=== PATIENT | female | born 1990 | race Caucasian/White ===

== ENCOUNTER 2018-11-17 20:24 | Emergency (ER) | payer SELFPAY ==
[~2018-11-17] VITALS: Ht 162.6 cm; Wt 87.5 kg
[2018-11-17 20:31] VITALS: Ht 162.6 cm; Wt 87.5 kg
[2018-11-17 22:23] LABS: BASOPHIL % 1.2 % (0-2); PLATELET COUNT 361 x10^3mcL (130-400); RED CELL DISTRIBUTION WIDTH 14.4 % (11.5-14.5)
[2018-11-17 22:33] LABS: CALCIUM 9.3 mg/dL (8.5-10.1); CREATININE SERUM 1.2 mg/dL (0.6-1.0); POTASSIUM SERUM 3.8 mmol/L (3.5-5.1)
[2018-11-17 22:36] LABS: ALBUMIN 4.2 g/dL (3.4-5.0); BILIRUBIN TOTAL 0.3 mg/dL (0.20-1.00)
[2018-11-18 02:20] VITALS: BP 107/76
== END 2018-11-18 02:20 | disposition home or self-care (01) ==
LOC: ED 20:24
PROVIDERS: Emergency Medicine
DX: S40.022A Contusion of left upper arm, initial encounter (principal); R07.89 Other chest pain; W22.8XXA Striking against or struck by other objects, initial encounter; Y93.89 Activity, other specified; Y92.89 Other specified places as the place of occurrence of the external cause; Y99.8 Other external cause status
CPT/HCPCS: 85378; J1885; J3475; J7030; Q0092

== ENCOUNTER 2018-11-20 10:52 | Inpatient (IN) | payer MEDICAID ==
[~2018-11-20] VITALS: Ht 162.6 cm; Wt 86.2 kg
[2018-11-20 10:57] VITALS: Ht 162.6 cm; Wt 86.2 kg
--- NOTE | 2018-11-20 11:07 | NUR ---
PT BIB FAMILY S/S CP STS STARTED THIS AM STS WAS HERE X 2 DAYS AGO FOR SAME AWAITING FOR DR MEGHANA SHIELDS
--- NOTE | 2018-11-20 11:11 | NUR ---
AT BEDSIDE TO CORNELIUS
[2018-11-20 11:33] LABS: BASOPHIL % 1.1 % (0-2); PLATELET COUNT 380 x10^3mcL (130-400); RED CELL DISTRIBUTION WIDTH 14.5 % (11.5-14.5)
[2018-11-20 11:38] LABS: CALCIUM 9.4 mg/dL (8.5-10.1); CARBON DIOXIDE 29.1 mmol/L (21-32); CHLORIDE SERUM 105 mmol/L (98-107); CREATININE SERUM 1.1 mg/dL (0.6-1.0); GFR1 > 60 mL/min; GLUCOSE SERUM 85 mg/dL (74-106); POTASSIUM SERUM 4.2 mmol/L (3.5-5.1); SODIUM SERUM 143 mmol/L (136-145)
[2018-11-20 11:42] LABS: ALBUMIN 4.5 g/dL (3.4-5.0); ALKALINE PHOSPHATASE 72 U/L (46-116); ALT/SGPT 31 U/L (14-59); AST/SGOT 50 U/L (15-37); BILIRUBIN TOTAL 0.26 mg/dL (0.20-1.00); LIPASE 207 IU/L (73-393)
[2018-11-20 11:43] LABS: TOTAL PROTEIN, SERUM 8.4 g/dL (6.4-8.2)
--- NOTE | 2018-11-20 12:40 | NUR ---
PLEASE ENTER FULL NAMES OF HOOP RIVETING MACHINE OPERATOR HELPER/RN Patient data collected by (HOOP RIVETING MACHINE OPERATOR HELPER):BETTY ORR Assessment reviewed and completed by (RN):MORGAN SHARP
--- NOTE | 2018-11-20 13:02 | NUR ---
PT CALM DENIES PAIN RELAXED WATCHING TV
[2018-11-20 13:23] LABS: AMPHETAMINE QUAL UR NONE DETECTED (See below)
[2018-11-20 14:41] LABS: FREE T4 0.17 ng/dL (0.76-1.46)
[2018-11-20 14:42] LABS: FREE THYROXINE INDEX 0.1 ug/dL (1.4-4.5); T3 TOTAL 0.25 ng/mL; T4(THYROXINE) 0.5 ug/dL (4.7-13.3)
--- NOTE | 2018-11-20 14:43 | NUR ---
PT ADMIT TO ICU ROOM 3 GAVE REPORT TO GOMEZ
--- NOTE | 2018-11-20 14:45 | NUR ---
RECEIVED REPORT FROM BETTY VOSS. UPDATES PROVIDED, ALL QUESTIONS ANSWERED AND ADDRESSED. WILL ASSUME CARE
--- NOTE | 2018-11-20 15:13 | NUR ---
RECEIVED PT FROM ED ACCOMPANIED BY NURSE AND EMT VIA REVENTIVE. PT AAOX4. ABLE TO FOLLOW COMMANDS AND MAKE NEEDS KNOWN. SPEECH IS CLEAR AND APPROPRIATE FOR AGE. PERRL. GLASSES ON PT. NO FACIAL DROOP. SMILE IS SYMMETRICAL. NO UNILATERAL WEAKNESS. ON ROOM AIR. BREATHING E/U. SYMMETRICAL CHEST WALL EXPANSION. NO ADVENTITIOUS LUNG SOUNDS AUSCULTATED. DENIES SOB. NO S/S OF RESP DISTRESS. NSR ON FORM PRESSER. VS: TEMP - 97.6, HR - 63, BP - 131/88 (108), RR - 11, O2 SAT - 100%. DENIES CP AT THIS TIME. MOD PALPABLE PULSES X4. CAP REFILL <3 SEC TO BUE AND BLE. NO EDEMA. SKIN IS WARM/DRY TO TOUCH, PALE IN COLOR. PIV TO L HAND INTACT, PORT PATENT, DRESSING CDI. ABD IS SOFT, SYMMETRICAL, ROUNDED, AND NONTENDER. ACTIVE BOWEL SOUNDS. VOIDS FREELY. NO VAGINAL BLEEDING OR DISCHARGE. ABLE TO TURN AND REPOSITION SELF. AMBULATORY. FULL ROM TO ALL EXTREMITIES. JOINTS INTACT. NO CONTRACTURES. ECCHYMOSIS TO L UPPER ARM. NO OPEN WOUNDS.
[2018-11-20 15:28] VITALS: BP 131/88
--- NOTE | 2018-11-20 17:30 | NUR ---
PT RECEIVED INFLUENZA AND PNEUMONIA VACCINE ON L ARM.
--- NOTE | 2018-11-20 18:55 | NUR ---
PT AAOX4. REMAINS ON ROOM AIR. RESPS E/U. SYMMETRICAL CHEST WALL EXPANSION. NO S/S OF ACUTE DISTRESS. NSR ON YARD MOTOR OPERATOR. VSS. PIV TO L HAND INTACT, PORT PATENT, DRESSING CDI. NS INFUSING @ 100 ML/HR. WILL ENDORSE CARE TO ONCOMING RN.
--- NOTE | 2018-11-20 18:55 | NUR ---
LAB AT BEDSIDE FOR BLOOD DRAW.
--- NOTE | 2018-11-20 19:11 | NUR ---
REPORT GIVEN TO TJ VOSS. ALL QUESTIONS ANSWERED AND ADDRESSED.
--- NOTE | 2018-11-20 20:00 | NUR ---
RECEIVED PT IN BED, RESTING QUIETLY.A/O X4,ABLE TO VERBALIZE NEEDS. DENIES HEADACHE/DIZZINESS. RESP. EVEN AND UNLABORED, ON ROOM AIR. LUNG SOUNDS CLEAR BILAT. SAT. WELL. NO ACUTE DISTRESS NOTED. AFEBRILE AND VITAL SIGNS STABLE. ABD. SOFT, NON DISTENDED, BS ACTIVE, NO N/V NOTED. IVF, NS AT 100ML/HR, INTACT AND INFUSING TO LT HAND, SITE CLEAR. SKIN WARM AND DRY, ECCHYMOSIS TO LT UPPER ARM. ABLE TO MOVE ALL EXTS. AFEBRILE AND VITAL SIGNS STABLE. SR ON THE MONITOR.DENIES CP OR ANY DISCOMFORT AT THIS TIME. CALL LIGHT WITHIN REACH. WILL CONTINUE TO MONITOR.
[2018-11-20 20:05] VITALS: BP 105/72
[2018-11-20 21:00] VITALS: BP 121/81
[2018-11-20 22:00] VITALS: BP 133/91
--- NOTE | 2018-11-20 22:21 | NUR ---
COMPLAINED OF HEADACHE, 4/10, MEDICATED WITH TYLENOL PO ORDERED. WILL CONTINUE TO MONITOR.
[2018-11-20 23:06] VITALS: BP 127/78
--- NOTE | 2018-11-20 23:07 | NUR ---
PT DENIES PAIN OR ANY DISCOMFORT AT THIS TIME. WILL CONTINUE TO MONITOR.
--- NOTE | 2018-11-20 23:50 | NUR ---
NO COMPLAINTS NOTED AT THIS TIME. RESTING QUIETLY , WITH EYES CLOSED, APPEARS ASLEEP, EASILY AROUSABLE. AFEBRILE AND VITAL SIGNS STABLE. RESP. EVEN AND UNLABORED. NO ACUTE DISTRESS NOTED. SR ON THE MONITOR. IVF INTACT AND INFUSING WELL, SITE CLEAR. WILL CONTINUE TO MONITOR.
[2018-11-21] VITALS (10 sets, daily range): BP systolic 97–126; BP diastolic 53–82
[2018-11-21 00:39] LABS: microscopic required? YES; urine erythrocyte TRACE (NEGATIVE)
[2018-11-21 05:41] LABS: BASOPHIL % 0.3 % (0-2); PLATELET COUNT 365 x10^3mcL (130-400); RED CELL DISTRIBUTION WIDTH 14.4 % (11.5-14.5)
[2018-11-21 05:45] LABS: CALCIUM 8.7 mg/dL (8.5-10.1); CARBON DIOXIDE 25.6 mmol/L (21-32); CHLORIDE SERUM 105 mmol/L (98-107); CREATININE SERUM 1.1 mg/dL (0.6-1.0); GFR1 > 60 mL/min; GLUCOSE SERUM 129 mg/dL (74-106); PHOSPHOROUS 3.7 mg/dL (2.5-4.9); SODIUM SERUM 139 mmol/L (136-145)
--- NOTE | 2018-11-21 06:11 | NUR ---
SLEPT WELL. NO COMPLAINTS NOTED AT THIS TIME. SR ON THE MONITOR. DENIES CP OR ANY DISCOMFORT AT THIS TIME. AFEBRILE AND VITAL SIGNS STABLE. RESP. EVEN AND UNLABORED, ON ROOM AIR, NO ACUTE DISTRESS NOTED. ACCUCHECK READING SHOWS 118. IVF, INTACT AND INFUSING WELL, SITE CLEAR. VOIDING FREELY VIA BSC, NO BM NOTED. KEPT COMFORTABLE. CALL LIGHT WITHIN REACH. WILL CONTINUE TO MONITOR.
--- NOTE | 2018-11-21 07:30 | NUR ---
RC'D PT RESTING IN BED WITH NO APPARENT S/S OF DISTRESS. PT A/A/O/X4, SPEECH CLEAR AND APPROPRIATE. PT DENIES DIZZINESS. PT ABLE TO FOLLOW COMMANDS AND ABLE TO MAKE NEEDS KNOWN. PUPILS 3MM AND BRISK BILAT. NO FACIAL DROOP NOTED. NO EENT DRAINAGE NOTED. RESP E/U. LUNGS CTA. ON RA, DENIES SOB. SPO2 98%, NO RESP DISTRESS NOTED. NSR ON MONITOR. S1S2 AUSCULTATED. PT DENIES CP. PALP PULSES, NO EDEMA NOTED. SKIN WARM TO TOUCH AND CONSISTENT WITH ETHNICITY. NS @100. ABDOMEN SOFT AND NONTENDER. ACTIVE BS. DENIES N/V. NO BM NOTED. PT USES BSC. PT DENIES DISCOMFORT UPON URINATION. ECCYMOSIS NOTED TO CESAR VELAZQUEZ. PT DENIES PAIN AT THIS TIME. BED IN LOWEST POSITION. CALL LIGHT IN REACH. WILL CONT TO MONITOR
--- NOTE | 2018-11-21 08:18 | NUR ---
DR DAVILA AND MED TEAM PRESENT AT BEDSIDE DISCUSSING POC WITH PT. MD UPDATED ON PT CURRENT STATUS. ALL QUESTIONS AND CONCERNS ADDRESSED. NO NEW ORDERS AT THIS TIME
--- NOTE | 2018-11-21 08:35 | NUR ---
DR WEAVER PRESENT AT BEDSIDE DISCUSSING POC WITH PT. ALL QUESTIONS AND CONCERNS ADDRESSED. NO NEW ORDERS AT THIS TIME
--- NOTE | 2018-11-21 08:50 | NUR ---
CASEWORKER INTAKE PRESENT AT BEDSIDE
--- NOTE | 2018-11-21 10:08 | NUR ---
AM MEDICATIONS GIVEN. PT TOLERATED WELL. PT C/O OF MALIK 07/21, MEDICATED PER EMAR. RESP E/U. ON RA, DENIES SOB. WILL CONT TO MONITOR
--- NOTE | 2018-11-21 11:22 | NUR ---
PT RESTING IN BED, DENIES PAIN/DISTRESS. RESP E/U. SPO2 98%. WILL CONT TO MONITOR
--- NOTE | 2018-11-21 13:45 | NUR ---
DR WEIR PRESENT AT BEDSIDE DISCUSSING POC WITH PT. ALL QUESTIONS AND CONCERNS ADDRESSED. AWAITING NEW ORDERS AT THIS TIME.
--- NOTE | 2018-11-21 14:01 | NUR ---
Discount pharmacy card and list to low cost medical clinics given to patient by Marcia.
--- NOTE | 2018-11-21 15:39 | NUR ---
REPORT CALLED AND GIVEN TO CHAD VOSS. PT TO BE TRANSFERRED TO [facility]. ALL QUESTIONS AND CONCERNS ADDRESSED. PT TO TRANSFER SHORTLY
--- NOTE | 2018-11-21 16:00 | NUR ---
ASSUMED CARE AND REPORT FROM JEANMARIE VOSS FROM ICU TRANSFER, PT ASSISTED VIA WC, AMBULATORY, CONTINENT, VERBAL, IN NO ACUTE DISTRESS, TELE #1, NSR, DENIED PAIN/CP/PALPITATION, DENIED N/V/D, BS ACTIVE X 4, IV PATENT AND INFUSING WELL, DRESSING CDI, PALP PULSES, CAP REFILL < 3S, EQUAL HAND WAREHOUSE INCENTIVE SELECTOR, NO FACIAL DROOP/SLURRED SPEECH, ALL NEEDS ADDRESSED AT THIS TIME, SISTER AT BEDSIDE, CONTINUE TO MONITOR
--- NOTE | 2018-11-21 16:15 | NUR ---
V/S: 98.1, 18, RA, 97%, 119/70 (80), 73, 0/10
--- NOTE | 2018-11-21 17:46 | NUR ---
PT IN BED, IN NO ACUTE DISTRESS, VERBAL, CALM AND COOPPERATIVE, DENIED CP/PALPITATION/MALIK, DENIED N/V/D, IV PATENT AND INFUSING WELL, DRESSING CDI, AMBULATORY, CONTINENT, SKIN C/D/I, SKIN C/D/W, ALL NEEDS ADDRESSED AT THIS TIME, SAFETY PROTOCOL MAINTAINED, WILL ENDORSE TO ONCOMING RN
--- NOTE | 2018-11-21 19:51 | NUR ---
RECEIVED AWAKE IN BED, VERBALLY RESPONSIVE,ABLE TO MAKE NEEDS KNOWN.RESPIRATION EVEN AND UNLABPRED, SYMMETRICAL CHEST WALL EXPANSION. NO FACIAL DROOP, EQUAL HAND HEAD BAKER, NSR ON FARM LOAN REPRESENTATIVE, DENIES ANY CHEST PAIN/DISCOMFORT. FAMILY AT BEDSIDE VERY SUPPORTIVE OF PATIENTS CURRENT PLAN OF CARE.
--- NOTE | 2018-11-21 23:56 | NUR ---
APPARENTLY ASLEEP AT THIS TIME. EYES CLOSED, NO FACIAL GRIMACING NOTED. RESPIRATION EVEN AND UNLABORED. SR ON THE MONITOR. NO S/S OF ACUTE DISTRESS.
--- NOTE | 2018-11-22 04:44 | NUR ---
PT C/O SO. DR AMAYA MALLOY AWARE WITH NEW ORDER, AWAITNG FOR PAHRMACY TO VERIFY.
--- NOTE | 2018-11-22 04:46 | NUR ---
RT MADE AWARE OF THE NEW ORDER.
[2018-11-22 04:49] VITALS: BP 98/54
--- NOTE | 2018-11-22 05:52 | NUR ---
APPARENTLY COMFORTABLE AT THIS TIME AFTER BREATHING TREATMENT GIVEN BY RT ORDERED. NO S/S OFA CUTE DISTRESS. KEPT CLEAN AND DRY. ALL NEEDS ATTENDED.
[2018-11-22 06:46] LABS: CALCIUM 8.7 mg/dL (8.5-10.1); CHLORIDE SERUM 108 mmol/L (98-107); CREATININE SERUM 0.9 mg/dL (0.6-1.0); GFR1 > 60 mL/min; GLUCOSE SERUM 115 mg/dL (74-106); MAGNESIUM 2.1 mg/dL (1.8-2.4); PHOSPHOROUS 2.7 mg/dL (2.5-4.9); POTASSIUM SERUM 3.8 mmol/L (3.5-5.1); SODIUM SERUM 142 mmol/L (136-145)
[2018-11-22 06:52] LABS: T3 TOTAL 0.3 ng/mL
[2018-11-22 07:04] LABS: BASOPHIL % 0.2 % (0-2); PLATELET COUNT 349 x10^3mcL (130-400); RED CELL DISTRIBUTION WIDTH 14.3 % (11.5-14.5)
--- NOTE | 2018-11-22 07:11 | NUR ---
RECEIVED REPORT FROM HAYLEE VOSS AT BEDSIDE, PT RESTING IN BED IN NO ACUTE DISTRESS
[2018-11-22 07:39] LABS: FREE T4 0.43 ng/dL (0.76-1.46)
--- NOTE | 2018-11-22 07:56 | NUR ---
PT RESTING IN BED, IN NO ACUTE DISTRESS, VERBAL, ABLE TO MAKE NEEDS KNOWN, CALM AND COOPERATIVE, PERRLA, BRISK, NO REDNESS/DRAINAGE, NO FACIAL DROOP/SLURRED SPEECH, RESP EVEN, NO SOB/COUGH, RA, LUNGS CTA, CHEST RISE SYMMETRICALLY, TELE #1, NSR, HR-60, DENIED CP/PALPITATION/PAIN/MALIK, DENIED N/V/D, ABD ROUND AND NON-TENDER TO TOUCH, BS ACTIVE X 4, LAST BM THIS AM, PALP PUSLES, CAP REFILL <2S, AMBULATORY, CONTINENT, IV PATENT AND FLUSHING WELL, DRESSING CDI, SKIN C/D/W, SEE SKIN ASSESSMENT, ALL NEEDS ADDRESSED AT THIS TIME, FAMILY AT BEDSIDE, SAFETY PROTOCOL MAINTAINED, CONTINUE TO MONTIOR
[2018-11-22 08:13] VITALS: BP 96/66
--- NOTE | 2018-11-22 09:11 | NUR ---
AM MEDS GIVEN PER MD ORDER VIA EMAR, TOLERATED WELL, NO ASE NOTED AT THIS TIME, EDUCATED PT R/T MED, S/E, MONITOR, VERBALLY UNDERSTANDING, ALL NEEDS ADDRESSED AT THIS TIME, SAFETY PROTOCOL FOLLOWED, CONTINUE TO MONITOR
[2018-11-22 10:02] LABS: FREE THYROXINE INDEX 0.7 ug/dL (1.4-4.5); T4(THYROXINE) 2.4 ug/dL (4.7-13.3)
[2018-11-22] MEDS ORDERED: LEVOTHYROXINE0.2 M2 PO (10:50)
[2018-11-22 11:33] VITALS: BP 120/67
[2018-11-22 11:49] VITALS: BP 113/64
--- NOTE | 2018-11-22 13:06 | NUR ---
DC PAPER SIGNED BY PT AND KEPT IN CHART, IV REMOVED, IV CATH TIP PATENT, NO ACTIVE BLEEDING NOTED, TELE REMOVED AND RETURNED TO REI FAJARDO, EDUCATED PT R/T MEDICATION ASE, MONITORING, DOSE AND F.U W/ PCP ARRANGED APPOINTMENTM VERBALLY UNDERSTANDING, PT SAID IT'S HER RESPONSIBILITY TO F/U W/ PCP, PT ASKED TO HAVE MD NOTE DURING HOSPITALIZATION TO PROVE TO WORK PLACE, CHARGE NURSE RAN AND SW MADE AWARE, PT IN NO ACUTE DISTERSS, PT CALLED FAMILY TO P/U HOME, PT ASSISTED TO LOBBY VIA WC BY NURSING STAFFS WHEN [facility]
--- NOTE | 2018-11-22 13:35 | NUR ---
PT LEFT EYE GLASS, CALLED PT AND MADE AWARE, PT SAID WILL COME BACK TO P/U EYE GLASS, DROPPED AT LOBBY/BAR MACHINE OPERATOR PRODUCTION PER PT REQUEST, CHARGE NURSE RAN MADE AWARE
== END 2018-11-22 13:28 | disposition home or self-care (01) | DRG 427 ==
LOC: ED 10:52 → DU 12:37 → IC 12:37 → DU 11-21 16:00
PROVIDERS: Emergency Medicine; ADMIT Family Medicine
DX: E03.9 Hypothyroidism, unspecified (principal); I45.81 Long QT syndrome; M94.0 Chondrocostal junction syndrome [Tietze]; D64.9 Anemia, unspecified; I48.91 Unspecified atrial fibrillation; R73.03 Prediabetes; Z68.33 Body mass index [BMI] 33.0-33.9, adult
CPT/HCPCS: 82962; 83880; 84439; 90658; 90732; G0378; J1720; J3475; J3490; J7030; J7620

== ENCOUNTER 2019-09-07 14:37 | Inpatient (IN) | payer SELFPAY ==
[~2019-09-07] VITALS: Ht 165.1 cm; Wt 96.2 kg
[~2019-09-07 14:37] MED LIST: LEVOTHYROXINE0.2 M2 PO
[2019-09-07 15:01] VITALS: Ht 165.1 cm; Wt 96.2 kg
[2019-09-07 15:57] LABS: BASOPHIL % 1.2 % (0-2); PLATELET COUNT 316 x10^3mcL (130-400)
[2019-09-07 15:59] LABS: CALCIUM 9.4 mg/dL (8.5-10.1); CREATININE SERUM 1.2 mg/dL (0.6-1.0); POTASSIUM SERUM 3.9 mmol/L (3.5-5.1)
[2019-09-07 16:00] LABS: RED CELL DISTRIBUTION WIDTH 15.9 % (11.5-14.5)
[2019-09-07 16:14] LABS: ALBUMIN 4.4 g/dL (3.4-5.0); BILIRUBIN TOTAL 0.4 mg/dL (0.20-1.00); FREE T4 0.31 ng/dL (0.76-1.46)
[2019-09-07 16:15] LABS: TOTAL PROTEIN, SERUM 8.3 g/dL (6.4-8.2)
[2019-09-07 16:40] LABS: microscopic required? YES; urine erythrocyte 1+ (NEGATIVE)
[2019-09-07 17:08] LABS: AMPHETAMINE QUAL UR NONE DETECTED (See below)
[2019-09-07 21:49] LABS: CHOLESTEROL/HDL RATIO 4.8
[2019-09-07 21:55] LABS: T3 TOTAL 0.14 ng/mL
[2019-09-07 22:20] LABS: FREE T4 0.33 ng/dL (0.76-1.46)
[2019-09-07 22:37] LABS: FREE THYROXINE INDEX 0.1 ug/dL (1.4-4.5); T4(THYROXINE) 0.2 ug/dL (4.7-13.3)
[2019-09-07 23:51] VITALS: BP 121/84
[2019-09-08 05:08] VITALS: BP 101/62
[2019-09-08 07:13] LABS: BASOPHIL % 1.1 % (0-2); PLATELET COUNT 283 x10^3mcL (130-400)
[2019-09-08 07:22] LABS: CALCIUM 8.7 mg/dL (8.5-10.1); CARBON DIOXIDE 28.2 mmol/L (21-32); CREATININE SERUM 1.2 mg/dL (0.6-1.0); MAGNESIUM 2.1 mg/dL (1.8-2.4); PHOSPHOROUS 3.6 mg/dL (2.5-4.9); POTASSIUM SERUM 3.7 mmol/L (3.5-5.1)
[2019-09-08 08:13] LABS: RED CELL DISTRIBUTION WIDTH 15.8 % (11.5-14.5)
[2019-09-08 08:34] VITALS: BP 120/88
[2019-09-08] MEDS ORDERED: SYN2 PO (12:13)
[2019-09-08] MEDS ORDERED: ATORVASTATIN CA10 M1 GT (12:15)
[2019-09-08 12:21] VITALS: BP 110/77
[2019-09-08 12:44] VITALS: BP 105/87
== END 2019-09-08 17:05 | disposition home or self-care (01) | DRG 882 ==
LOC: ED 14:37 → DU 20:07
PROVIDERS: Specialist; ADMIT Internal Medicine; ATTEND Internal Medicine
DX: F45.8 Other somatoform disorders (principal); R73.03 Prediabetes; E03.9 Hypothyroidism, unspecified; F41.9 Anxiety disorder, unspecified; D64.9 Anemia, unspecified; R53.1 Weakness; Z88.8 Allergy status to other drugs, medicaments and biological substances
CPT/HCPCS: 84439; G0378; J2405; J7030; Q0092; Q9967